=== PATIENT | male | born 2000 ===

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

== ENCOUNTER 2021-10-08 13:57 | Emergency (ER) | payer MEDICAID ==
[2021-10-08 15:02] LABS: Basophils % (Auto) 0.5 % (0.0-1.8); Eosinophils # (Auto) 0.1 K/mm3 (0.0-0.4); Eosinophils % (Auto) 1.9 % (0.0-4.3); Hematocrit 42.9 % (35.5-45.6); Hemoglobin 13.8 gm/dl (11.8-15.2); Lymphocytes # (Auto) 1.6 K/mm3 (1.2-5.4); Lymphocytes % (Auto) 22.9 % (13.4-35.0); Mean Corpuscular HGB Conc 32 % (32-34); Mean Corpuscular Volume 77 fl (84-94); Monocytes # (Auto) 0.7 K/mm3 (0.0-0.8); Monocytes % (Auto) 9.5 % (0.0-7.3); Platelet Count 163 K/mm3 (140-440); Red Blood Count 5.55 M/mm3 (3.65-5.03); Red Cell Distribution Width 15.6 % (13.2-15.2)
[2021-10-08 15:21] LABS: Blood Urea Nitrogen 10 mg/dL (9-20); Hemolysis Index 6
[2021-10-08 15:23] LABS: BUN/Creatinine Ratio 14
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
[2021-10-08 21:08] LABS: Bilirubin,Urine NEG (Negative); Blood,Urine NEG (Negative); Color,Urine Straw (Yellow); Protein,Urine <15 mg/dL mg/dL (Negative); Urobilinogen,Urine < 2.0 mg/dL (<2.0); WBC,Urine < 1.0 /HPF (0.0-6.0)
[2021-10-08 21:15] LABS: Amphetamine Screen,Urine Negative; Benzodiazepines Screen,Urine Negative; Cannabinoid Screen,Urine Negative; Cocaine Screen,Urine Negative; Methadone Screen,Urine Negative; Opiate Screen,Urine Negative
[2021-10-09] MEDS: cephALEXin 500 MG CAP PO SCH ×2 (10:33→17:22)
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
--- NOTE | 2021-10-10 10:14 | Event Note ---
Date: 10/10/21 The patient was evaluated in the emergency department for symptoms described in the history of present illness. He/she was evaluated in the context of the global COVID-19 pandemic, which necessitated consideration that the patient might be at risk for infection with the virus that causes COVID-19. Institutional protocols and algorithms that pertain to the evaluation of patients at risk for COVID-19 are in a state of rapid change based on information released by regulatory bodies including the CDC and federal and state organizations. These policies and algorithms were followed during the patient's care in the emergency department. Please note that these policies, procedures and recommendations changed on a rapid basis. Laboratory studies, vital signs, nursing documentation, ER documentation, and psychiatric documentation are reviewed and appreciated. No acute concerns have been brought to my attention The patient is awake and ambulating and does not appear to be in any acute distress. The patient was deemed medically suitable for psychiatric disposition and placement during his initial ER evaluation. The patient continues to remain As per psychiatric team's recommendations:RECOMMENDATION: Pt does NOT meet criteria for [facility]/inpatient psyc; pt just left inpatient ps and walked from [facility] to [facility] "because I don't like that assisted." Pt reports he stated SI to obtain alternative housing to his current assisted, but pt reports that he is having no suicidal thoughts/plans. Pt has been diagnosed with Autism and is under the care of the state guardian/counter caser. Currently awaiting case management intervention to place patient appropriately. Vital Signs 10/08/21 10/08/21 10/08/21 14:03 20:40 21:15 Temperature 98 F 98.4 F Pulse Rate 120 H 88 Respiratory 16 16 Rate Blood Pressure 155/83 127/76 [Left] O2 Sat by Pulse 95 98 97 Oximetry 10/09/21 10/09/21 12:58 19:50 Temperature 98.2 F 98.8 F Pulse Rate 79 88 Respiratory 16 18 Rate Blood Pressure 110/62 116/65 [Left] O2 Sat by Pulse 99 99 Oximetry
[2021-10-10] MEDS: ALPRAZolam 0.5 MG TAB PO PRN ×2 (10:40→17:54)
[2021-10-10] MEDS: cephALEXin 500 MG CAP PO SCH ×2 (10:40→17:55)
[2021-10-11 08:50] VITALS: BP 130/78
[2021-10-11] MEDS: cephALEXin 500 MG CAP PO SCH (09:24)
[2021-10-11] MEDS: ALPRAZolam 0.5 MG TAB PO PRN ×2 (12:05→17:36)
[2021-10-12] MEDS: cephALEXin 500 MG CAP PO SCH (11:49)
--- NOTE | 2021-10-12 12:15 | Event Note ---
21-year-old male with autism, depression, ADHD presents to the hospital initially complaining of suicidal ideation. Patient was evaluated by mental health and deemed not a 1013 candidate and denies suicidal ideation and stated he needed a place to stay. Patient will be discharged to go back to his residential as per case management note
== END 2021-10-13 01:35 | disposition home or self-care (01) ==
LOC: ED 13:57 → EEVIPCON 13:57 → ED 10-13 01:35
DX: R45.851 Suicidal ideations (principal); Z20.822 Contact with and (suspected) exposure to COVID-19
CPT/HCPCS: 36415; 80048; 80307; 81001; 85025; 99284; U0003; 80320; G0480